=== PATIENT | male | born 1945 | race Caucasian/White ===

== ENCOUNTER 2020-09-29 09:11 | Emergency (ER) | payer BC ==
[~2020-09-29 09:11] MED LIST: AZULFIDINE500 MG PO; ECOTRIN81 MG PO; FLOMAX0.4 MG PO; FOLIC ACID 1 MG1 MG PO; IMDUR ER TAB 3030 MG PO; IMDUR ER TAB 6060 MG PO; IMURAN TAB 50 M50 MG PO; TOPROL XL200 MG PO; VITAMIN D32000 UNI1 PO; ZESTRIL40 MG PO; ZOCOR40 MG PO
[2020-09-29] MEDS ORDERED: CEPHALEXIN500 MG PO (09:57)
== END 2020-09-29 10:07 | disposition home or self-care (01) ==
LOC: ER1 09:11
DX: S91.331A Puncture wound without foreign body, right foot, initial encounter (principal); E11.9 Type 2 diabetes mellitus without complications; I11.9 Hypertensive heart disease without heart failure; Z95.1 Presence of aortocoronary bypass graft; Z23 Encounter for immunization; W25.XXXA Contact with sharp glass, initial encounter; Y92.009 Unspecified place in unspecified non-institutional (private) residence as the place of occurrence of the external cause
CPT/HCPCS: 73630; 90471; 90715; 99283

== ENCOUNTER 2020-11-14 02:23 | Inpatient (IN) | payer MEDICARE, BC ==
[~2020-11-14] VITALS: Ht 177.8 cm; Wt 77.1 kg
[~2020-11-14 02:23] MED LIST changes: +CEPHALEXIN500 MG PO
[2020-11-14 03:12] LABS: HEMOGLOBIN 12.6 gm/dl (14.0-17.5); RED BLOOD COUNT 3.57 M/UL (4.20-5.50); WHITE BLOOD COUNT 11.6 K/UL (4.5-11.0)
[2020-11-14 03:32] LABS: BUN/CREATININE RATIO 20 (0-10)
[2020-11-14] MEDS ORDERED: BRIMONIDINE TAR15 ML OU (09:38)
[2020-11-14] MEDS ORDERED: LATANOPROST2.5 ML OP (09:39)
[2020-11-14] MEDS ORDERED: AMLODIPINE BESY10 MG PO (09:40)
[2020-11-14] MEDS ORDERED: B-125000 MCG/1 SL (09:43)
[2020-11-14] MEDS ORDERED: FERROUS SULFAT325 MG PO (09:43)
[2020-11-15 03:01] LABS: HEMOGLOBIN 13.8 gm/dl (14.0-17.5); RED BLOOD COUNT 3.9 M/UL (4.20-5.50); WHITE BLOOD COUNT 12.5 K/UL (4.5-11.0)
[2020-11-15 03:56] LABS: BUN/CREATININE RATIO 24 (0-10)
--- NOTE | 2020-11-15 17:35 | NUR ---
11/15/20 1700 SCD'S AND TELE PLACED ON PATIENT
[2020-11-16 07:15] LABS: HEMOGLOBIN 13.1 gm/dl (14.0-17.5); RED BLOOD COUNT 3.66 M/UL (4.20-5.50); WHITE BLOOD COUNT 12.1 K/UL (4.5-11.0)
[2020-11-16 07:31] LABS: BUN/CREATININE RATIO 24 (0-10)
[2020-11-17 08:43] LABS: HEMOGLOBIN 12.2 gm/dl (14.0-17.5); RED BLOOD COUNT 3.43 M/UL (4.20-5.50); WHITE BLOOD COUNT 9.3 K/UL (4.5-11.0)
[2020-11-17 09:20] LABS: BUN/CREATININE RATIO 22 (0-10)
[2020-11-18 08:44] LABS: HEMOGLOBIN 12.1 gm/dl (14.0-17.5); RED BLOOD COUNT 3.48 M/UL (4.20-5.50); WHITE BLOOD COUNT 5.8 K/UL (4.5-11.0)
[2020-11-18 09:08] LABS: BUN/CREATININE RATIO 17 (0-10)
[2020-11-19 06:49] LABS: HEMOGLOBIN 13.3 gm/dl (14.0-17.5); RED BLOOD COUNT 3.75 M/UL (4.20-5.50); WHITE BLOOD COUNT 4.8 K/UL (4.5-11.0)
[2020-11-19 07:21] LABS: BUN/CREATININE RATIO 15 (0-10)
[2020-11-19] MEDS ORDERED: HYDROCODON-ACE1 EAC4 PO (10:30)
[2020-11-19] MEDS ORDERED: SENOKOT-S TABL1 EACH PO (10:30)
== END 2020-11-19 13:58 | disposition home or self-care (01) | DRG 329 ==
LOC: ER1 02:23 → MED SURG 4 07:13 → CDU 07:13 → MED SURG 4 18:50
PROVIDERS: Family Medicine; Internal Medicine; Physician Assistant Medical; Surgery; ADMIT Internal Medicine Infectious Disease
PROC: 0DB80ZZ Excision of Small Intestine, Open Approach (ICD-10-PCS; principal; 2020-11-15 15:30)
DX: K46.0 Unspecified abdominal hernia with obstruction, without gangrene (principal); G92 Toxic encephalopathy; K56.609 Unspecified intestinal obstruction, unspecified as to partial versus complete obstruction; K51.90 Ulcerative colitis, unspecified, without complications; K40.30 Unilateral inguinal hernia, with obstruction, without gangrene, not specified as recurrent; T40.605A Adverse effect of unspecified narcotics, initial encounter; I10 Essential (primary) hypertension; I25.10 Atherosclerotic heart disease of native coronary artery without angina pectoris; Z20.822 Contact with and (suspected) exposure to COVID-19; I73.9 Peripheral vascular disease, unspecified; E11.9 Type 2 diabetes mellitus without complications; D69.6 Thrombocytopenia, unspecified; E78.5 Hyperlipidemia, unspecified; Z79.84 Long term (current) use of oral hypoglycemic drugs; Z95.1 Presence of aortocoronary bypass graft; Y92.89 Other specified places as the place of occurrence of the external cause; Z82.49 Family history of ischemic heart disease and other diseases of the circulatory system
CPT/HCPCS: 36415; 71045; 71046; 80048; 80053; 81001; 82550; 82553; 82962; 83690; 83735; 83874; 84484; 85025; 85027; 93005; 96374; 96375; 96376; 99285; J0360; J1100; J2060; J2250; J2270; J2405; J2550; J2704; J2710; J3010; J3486; J7120; Q9967; U0002